=== PATIENT | female | born 1990 | race Caucasian/White ===

== ENCOUNTER 2024-10-30 21:52 | Emergency (ER) | payer OTHER, SELFPAY ==
[2024-10-30 22:02] VITALS: BP 134/83; PULSE 77; RESP 16; TEMP 37.3; O2SAT 100; BMI 24.7
--- NOTE | 2024-10-31 01:37 | ED_ITS ---
HPI - Dental/Oral General Date Seen: 10/31/24 Chief complaint: Dental/Oral/Mouth Injury/Pain Stated complaint: infection in mouth Time Seen by Provider: 10/31/24 01:28 Source: patient Mode of arrival: ambulatory Limitations: no limitations History of Present Illness HPI Narrative: Patient is a very nice lady presents here with 1 week and gum pain, she tried to call the dentist and get in for this, she feels the pain is now spread to the top cons, is on the left side of her mouth. She has no history of infections or dental trauma, tried saltwater rinse without relief, no fevers or chills able to swallow any foods normally. She does not feel that there is any swelling notable with this, but she does feel along the left side of her neck, some of the lymph nodes. Has not taken any Tylenol or ibuprofen, thing she may be also. Although very early. Teeth map: 2 1. Onset (ago): week(s) Duration: constant Severity: moderate Relieving factors: nothing Exacerbating factors: nothing Treatment prior to arrival: none Related Data Home Medications ?Medication ?Instructions ?Recorded ?Confirmed No Known Home Medications 10/30/2410/06 Allergies Allergy/AdvReac Type Severity Reaction Status Date / Time No Known Drug Allergies Allergy Verified 10/30/24 22:06 Review of Systems 2 Status of ROS: Reports: 6 or more systems reviewed and unremarkable except as noted in History and below Exam 2 Narrative: Exam Narrative: On examination she is in no apparent distress, very nice lady seen in room 4, there is clearly some gingival swelling on the left tooth number 21 lower mandible. She does not have any signs to suggest an abscess here, but there is redness, that extends along a couple teeth here, and a little bit of redness on the top also has some tenderness when I touch the tooth, there is no swelling of her face notable. But she does have some prominent lymph nodes on the left side of her anterior chain. Her neck is supple full range of motion her trachea is normal midline. Const: Vital Signs, click to edit/add: Vital Signs - 24 hr 10/30/24 22:02 Temperature 99.1 F Pulse Rate [Pulse Oximeter] 77 Respiratory Rate 16 Blood Pressure [Ri ght Upper Arm] 134/83 Pulse Oximetry 100 Oxygen Delivery Me thod Room Air Course Vital Signs Vital signs: Initial Vital Signs Temperature 99.1 F 10/30/24 22:02 Temperature Source Temporal Artery Scan 10/30/24 22:02 Pulse Rate 77 10/30/24 22:02 Respiratory Rate 16 10/30/24 22:02 Blood Pressure 134/83 10/30/24 22:02 Blood Pressure Mean 100 10/30/24 22:02 Blood Pressure Position Sitting 10/30/24 22:02 Pulse Oximetry 100 10/30/24 22:02 Oxygen Delivery Method Room Air 10/30/24 22:02 Vital Signs Temperature 99.1 F 10/30/24 22:02 Pulse Rate 77 10/30/24 22:02 Respiratory Rate 16 10/30/24 22:02 Blood Pressure 134/83 10/30/24 22:02 Pulse Oximetry 100 10/30/24 22:02 Oxygen Delivery Method Room Air 10/30/24 22:02 Temperature 99.1 F 10/30/24 22:02 Pulse Rate 77 10/30/24 22:02 Respiratory Rate 16 10/30/24 22:02 Blood Pressure 134/83 10/30/24 22:02 Pulse Oximetry 100 10/30/24 22:02 Oxygen Delivery Method Room Air 10/30/24 22:02 MDM - Dental/Oral MDM Narrative Medical decision making narrative: I discussed with her that I think there would be reason to put her on some antibiotics here, we will use some Augmentin min she will use some yogurt common probiotics, she was very comfortable with this plan she will use some Tylenol for the discomfort also. And she will use some mouthwashes. Couple times a day she will call the dentist in the morning and get in to be seen. Likely an x-ray return here, if ongoing pain or swelling. Differential Diagnosis Differential diagnosis: Likely gingival abscess, dental caries, toothache and dental abscess Medical Records Attestation: I reviewed the patient's medical records. Discharge Plan Discharge Clinical Impression: Toothache, Gingival abscess Patient Disposition: Home, Self-Care Condition: Stable Instructions: Gingivitis (DC), Periodontal Disease (DC) Additional Instructions: Home rest use of Augmentin him, 875 mg twice daily, Tylenol for the discomfort, suggest follow-up with dentistry as you are going to do. Mouthwash is also very helpful for this, swish and spit a couple times a day. Activity Level: Light activity Prescriptions: No Action No Known Home Medications Stand Alone Forms: [employer] Info Instructions
== END 2024-10-31 01:49 | disposition home or self-care (01) ==
PROVIDERS: Emergency Provider Family Medicine
DX: K04.7 Periapical abscess without sinus (principal)
CPT/HCPCS: 99283

== ENCOUNTER 2024-11-05 16:31 | Emergency (ER) | payer OTHER, SELFPAY ==
[2024-11-05 16:45] VITALS: BP 132/82; PULSE 75; RESP 16; TEMP 36.5; O2SAT 100; BMI 24.9
--- NOTE | 2024-11-05 17:19 | ED_ITS ---
HPI - General Adult General Chief complaint: Dental/Oral/Mouth Injury/Pain Stated complaint: infection in mouth Time Seen by Provider: 11/05/24 16:32 History of Present Illness HPI narrative: Was seen previously in ED for mouth infection. Referred to dentist, dentist unsure of dx and referred to heat regulator. Unable to get in with heat regulator due to holiday weekend. Pt now complaining of worsening throat pain/ swelling/ redness and is concerned. Has been on augmentin for approx 5 days. 34-year-old woman presenting to the emergency department with concern of dental, oral infection. Was seen here in this facility 4 days ago and initiated on Augmentin. At that time was diagnosed with gingival abscess and noted to have some area lymphadenopathy. Francie does describe how had some fullness or soreness underneath her jaw; sounds like this may have been related to infla mmatory changes. She had been draining some purulence from this gingival area in the left anterior lateral lower jaw. With swelling here yet and swelling above did present to the dentist. Images did not note any dental issue otherwise and puzzling that also was now involving with some swelling along the upper left gingival area. At some point Francie thought maybe she was experiencing some discomfort perhaps related to clenching. Had recommended to be seen then by heat regulator by dentist but as holiday weekend now returns to the ER. Over the last 3 - 4 days began to notice some discomfort or pressure in her left greater than right neck; kind of like with strep throat by without a sore throat. Not having any difficulty breathing nor pain. Maybe a little tight when swallowing? Then today noted some white debris on her tonsils. No fever. Did have some erythema/rash over the upper chest. Noting also that she had scarlet fever when she was a child. No symptoms into her extremities. Related Data Home Medications ?Medication ?Instructions ?Recorded ?Confirmed amoxicillin-pot clavulanate .ROUTE 11/05/24 Previous Rx's ?Medication ?Instructions ?Recorded chlorhexidine gluconate 0.12 % 15 ml buccal BID #118 m L 11/05/24 mouthwash fluconazole 150 mg tablet 150 mg PO ONCE #1 tab prednisone 20 mg tablet 40 mg (2 x 20 mg) PO DAILY 3 days 11/05/24 #6 tabs Allergies Allergy/AdvReac Type Severity Reaction Status Date / Time No Known Drug Allergies Allergy Verified 10/30/24 22:06 Review of Systems Status of ROS: Reports: 6 or more systems reviewed and unremarkable except as noted in History and below [facility] Social History Smoking Status: Never smoker Do you use any of these nicotine containing products: None Second hand tobacco smoke exposure: No How often do you have a drink containing alcohol: never How often do you have six or more drinks on one occasion: Never AUDIT-C Alcohol total score: 0 Non-prescribed substance use: denies use service: No Exam Narrative: Exam Narrative: Pleasant. NAD. Heart in regular rate and rhythm. Breathing easily. No stridor. Lungs are clear with diffuse breath sounds present. Left greater than right tonsil mildly swollen and moderately erythematous with tonsillar debris/exudate. I do not appreciate much in the way of cervical lymphadenopathy which she admittedly nodes all improved. No posterior cervical lymphadenopathy. mild noninflamed edema /pallor along the left upper buccal surface of the gingiva. No swelling or erythema elsewhere in the mouth. Neck is supple. There is no supraclavicular crepitus. Heart in regular rate and rhythm without murmur rub or gallop. Skin is warm and dry without rash though she does seem a little flushed on the upper chest. Const: Vital Signs, click to edit/add: Vital Signs - 24 hr 11/05/24 16:45 Temperature 97.7 F Pulse Rate [Pulse Oximeter] 75 Respiratory Rate 16 Blood Pressure [Ri ght Upper Arm] 132/82 Pulse Oximetry 100 Oxygen Delivery Me thod Room Air Documenting provider has reviewed patient's vital signs: yes Course Vital Signs Vital signs: Initial Vital Signs Temperature 97.7 F 11/05/24 16:45 Temperature Source Temporal Artery Scan 11/05/24 16:45 Pulse Rate 75 11/05/24 16:45 Respiratory Rate 16 11/05/24 16:45 Blood Pressure 132/82 11/05/24 16:45 Blood Pressure Mean 98 11/05/24 16:45 Blood Pressure Position Sitting 11/05/24 16:45 Pulse Oximetry 100 11/05/24 16:45 Oxygen Delivery Method Room Air 11/05/24 16:45 Vital Signs Temperature 97.7 F 11/05/24 16:45 Pulse Rate 75 11/05/24 16:45 Respiratory Rate 16 11/05/24 16:45 Blood Pressure 132/82 11/05/24 16:45 Pulse Oximetry 100 11/05/24 16:45 Oxygen Delivery Method Room Air 11/05/24 16:45 Temperature 97.7 F 11/05/24 16:45 Pulse Rate 75 11/05/24 16:45 Respiratory Rate 16 11/05/24 16:45 Blood Pressure 132/82 11/05/24 16:45 Pulse Oximetry 100 11/05/24 16:45 Oxygen Delivery Method Room Air 11/05/24 16:45 Medications Administered Medications: Discontinued Medications Generic Name Dose Route Start Last Admin Trade Name Freq PRN Reason Stop Dose Admin Prednisone 60 mg 11/05/24 17:45 11/05/24 17:57 Prednisone 20 Mg Tablet PO 11/05/24 17:46 60 mg ONCE ONE Administration Medical Decision Making MDM Narrative Medical decision making narrative: Appears to have had an essentially resolved gingival abscess. Clearly associated with pharyngitis/tonsillitis of unclear etiology. Strange that this would occur in the setting of Augmentin but certainly could be viral process. Perhaps mono when she is experiencing some degree of irritation also from the amoxicillin? Does certainly have findings on physical exam of inflammatory changes in posterior throat though no significant asymmetry or findings that I would typically associated with some sort of an abscess. I would think that these findings in her throat certainly could be causing some of these symptoms. Otherwise perhaps pneumothorax or pneumomediastinum? Vascular disruption? Discussed imaging. She is disinclined to radiation. I do not think that is unreasonable. Screening for strep and COVID and then will check standard labs to prompt further evaluation. Screen for mono though might be too soon to rule it out although the throat does not look like typical throat. Also given a singular dose of 60 mg of prednisone. Symptoms as described might simply be related to the inflammation that is present. Labs are normal/reassuring. Negative strep. Negative mono; again might be too soon to check. Francie does bring a possibility thrush. I think that is a good thought considering the Augmentin. These do not look like typical plaquing but perhaps this is evolving. Does have follow-up early in the morning with heat regulator. With regard to the gingival abscess, I do not think that needs to continue the Augmentin much more than another day or 2. See patient discharge plan for further discussion I think it is unlikely that you have an abscess here. Is not clear to me that these throat symptoms are continuous with what had been going on in your mouth either. probably viral tonsillitis since you had been on the Augmentin. your labs are reassuring. COVID has now come back negative as well. You received 60 mg of prednisone here today. If you throat continues to be little red and irritated or you are uncomfortable yet, consider continuing another 3 days of prednisone. I am sending also in a prescription for chlorhexidine gluconate. This is a mouth rinse. Can discuss with the heat regulator whether not they would like to start/continue this. I suspect that with regard to the gingival abscess you seem to have before, you could probably stop the Augmentin within 2 days. if you start to have some plaquing on and around your soft palate, that might be more suggestive of thrush as you mentioned and certainly not unheard of on the heels of an antibiotic. sending in a prescription of fluconazole for this just have on hold at the pharmacy. otherwise return for marked increase in persistent pain, any indication of difficulty breathing, increasing difficulty swallowing. 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86 (1.7-7.0) K/uL Lymph # (Auto) 1.96 (0.90-2.90) K/uL [place] # (Auto) 0.40 (0.00-0.90) K/UL Eos # (Auto) 0.06 (0.00-0.50) K/uL Baso # (Auto) 0.02 (0.00-0.30) K/uL Abs Immat Gran (auto) 0.00 (0.00-0.30) K/uL Imm/Tot Granulo (auto) 0.0 % C-Reactive Protein < 0.5 L (0.5-1.0) mg/dL SARS-CoV-2 (PCR) Negative SARS-CoV-2 (Negative) Monoscreen Negative (Negative) Group A Strep DNA NOT DETECTED (Not Detectd) Discharge Plan Discharge Clinical Impression: Tonsillitis, Neck pain Patient Disposition: Home, Self-Care Condition: Improved Additional Instructions: I think it is unlikely that you have an abscess here. Is not clear to me that these throat symptoms are continuous with what had been going on in your mouth either. probably viral tonsillitis since you had been on the Augmentin. your labs are reassuring. COVID has now come back negative as well. You received 60 mg of prednisone here today. If you throat continues to be little red and irritated or you are uncomfortable yet, consider continuing another 3 days of prednisone. I am sending also in a prescription for chlorhexidine gluconate. This is a mouth rinse. Can discuss with the heat regulator whether not they would like to start/continue this. I suspect that with regard to the gingival abscess you seem to have before, you could probably stop the Augmentin within 2 days. if you start to have some plaquing on and around your soft palate, that might be more suggestive of thrush as you mentioned and certainly not unheard of on the heels of an antibiotic. sending in a prescription of fluconazole for this just have on hold at the pharmacy. otherwise return for marked increase in persistent pain, any indication of difficulty breathing, increasing difficulty swallowing. 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
[2024-11-05 18:00] LABS: Hematocrit 40.1 % (33.0-51.0); Hemoglobin* 13.7 gm/dL (12.0-16.0); Immature Granulocytes Abs Auto 0.00 K/uL (0.00-0.30); Immature Granulocytes Pct Auto 0.0 %; Lymphocytes Absolute Auto 1.96 K/uL (0.90-2.90); Mean Corpuscular HGB Conc 34 gm/dL (32-36); Mean Corpuscular Hemoglobin 34 pg (26-34); Mean Corpuscular Volume 99 fL (80-100); RDW Coefficient of Variation % 11.5 % (11.5-15.5); Red Blood Count 4.06 m/uL (4.00-5.20); White Blood Count* 6.32 K/uL (4.50-11.00)
[2024-11-05 18:21] LABS: Slide Review Reflex No
[2024-11-05 18:25] LABS: Mono Screen* Negative (Negative)
[2024-11-05 18:34] LABS: Strep A DNA Probe* NOT DETECTED (Not Detectd)
[2024-11-05 18:47] LABS: SARS PCR* Negative SARS-CoV-2 (Negative)
== END 2024-11-05 19:15 | disposition home or self-care (01) ==
PROVIDERS: Emergency Provider Family Medicine
DX: J03.90 Acute tonsillitis, unspecified (principal); M54.2 Cervicalgia
CPT/HCPCS: 36415; 85025; 86140; 86308; 87635; 87651; 99283; 99284; J7512